=== PATIENT | female | born 1935 | race African-American/Black ===

== ENCOUNTER 2018-07-15 12:44 | Day surgery (SDC) | payer OTHER ==
[2018-07-14 09:13] VITALS: BMI 20.5
--- NOTE | 2018-07-15 11:47 | HP ---
History & Physical Update - History History: No Change - Physical Physical: No Change - Assessment Assessment: No Change - Plan Plan: No Change
--- NOTE | 2018-07-15 11:49 | OP ---
Operative Note - Note: Operative Date: 07/15/18 Pre-Operative Diagnosis: bilateral hydronephrosis Operation: cystoscopy and bilat JJ stent change Findings: bilat hydro Post-Operative Diagnosis: Same as Pre-op Surgeon: Mikey Engel Anesthesiologist/ELECTRONIC REPAIR TROUBLESHOOTER: Jonh Sterling Anesthesia: General Specimens Removed: R and L JJ stents Estimated Blood Loss (mls): 0 Drains & Tubes with Location: 7 fr 22 cm R and L JJ stents Operative Report Dictated: Yes
[2018-07-15] MEDS ORDERED: DEXAMETHASONE SOD PHOSPHATE 4 MG/1 ML VIAL ONE (13:26)
[2018-07-15] MEDS ORDERED: LIDOCAINE HCL/PF 2% SDV 5ML VIAL ONE (13:26)
[2018-07-15] MEDS ORDERED: PROPOFOL 20 ML ONE (13:27)
[2018-07-15] MEDS ORDERED: ceFAZolin SODIUM 1 GM VIAL IVPB ONE (14:10)
[2018-07-15] MEDS ORDERED: KETOROLAC TROMETHAMINE 30 MG/1 ML VIAL ONE ×2 (14:29→14:31)
[2018-07-15] MEDS ORDERED: MIDAZOLAM HCL 2 MG/2 ML SINGLE DOSE VIAL ONE (15:14)
--- NOTE | 2018-07-15 15:24 | OP ---
DATE OF OPERATION: 07/15/2018 PREOPERATIVE DIAGNOSIS: Bilateral hydronephrosis. POSTOPERATIVE DIAGNOSIS: Bilateral hydronephrosis. PROCEDURE PERFORMED: Cystoscopy, bilateral JJ stent change. SURGEON: Mikey Kowalski M.D. KINDERGARTEN TUTOR: None. ANESTHESIA: General via laryngeal mask. ANESTHESIOLOGIST: Jonh Sterling CRNA SPECIMENS: Bilateral JJ stents. CULTURES: None. DRAINS: Right and left 7-Israeli 22-cm JJ stents. ESTIMATED BLOOD LOSS: None. COMPLICATIONS: None. DESCRIPTION OF PROCEDURE: The patient was brought into the operating room and placed on the operating table in the supine position. After the administration of general anesthesia via laryngeal mask, intravenous antibiotics were administered and sequential compression devices were placed. The patient was placed in the dorsal lithotomy position. The perineum and vagina were prepped and draped in the usual sterile manner. A 22-Israeli cystoscope was inserted into the bladder, with the obturator in place. The obturator was removed. Urine was evacuated. The 30-degree telescope was inserted and cystoscopy was performed. This demonstrated no tumor, stones or inflammation. Both ureteral orifices were in their locations, with JJ stents in place. The right JJ stent was grasped at its tip, brought to the urethral meatus, cannulated with a 0.038 guidewire, which was advanced to the level of the right renal pelvis under fluoroscopic guidance. The JJ stent was removed. A dual-lumen catheter was inserted. Retrograde pyelogram was done and demonstrated moderate right hydronephrosis. The guidewire was left in place. The dual-lumen catheter was removed and a 7-Israeli 22-cm right JJ stent was inserted over the guidewire under direct visual and fluoroscopic guidance, leaving 1 coil in the renal pelvis and 1 coil in the bladder. Now attention was directed to the left side. The left JJ stent was changed in an identical manner, the same size, 7-Israeli 22 cm. The bladder was emptied and the cystoscope removed. She tolerated the procedure well and was transferred to the recovery room in stable condition. MIKEY KOWALSKI M.D. [id number]
[2018-07-15] MEDS ORDERED: ceFAZolin SODIUM 1 GM VIAL ONE (15:28)
[2018-07-15] MEDS ORDERED: PHENYLEPHRINE HCL 10 MG/1 ML SINGLE DOSE VIAL ONE (15:47)
[2018-07-15] MEDS ORDERED: ONDANSETRON 4 MG/2 ML VIAL IVPUSH PRN (16:21)
[2018-07-15] MEDS ORDERED: oxyCODONE HCL 5 MG TABLET PO PRN (16:21)
[2018-07-15] MEDS ORDERED: LACTATED RINGERS SOLUTION 1,000 ML IV SCH (16:30)
[2018-07-15 17:15] VITALS: BP 150/64; PULSE 75; TEMP 97.8
--- NOTE | 2018-07-20 13:24 | PATH ---
Surgical Pathology Report Patient Name: ADELA CHISHOLM Med. Rec. #: [id number] /Age/Gender: 1935 (Age: 83) / F Account: [id number] Location: [facility] Taken: 07/15/2018 Received: 07/16/2018 Reported: 07/20/2018 Physicians: Mikey Engel M.D. Specimen(s) Received A: RIGHT STENT B: LEFT STENT Clinical History Hydronephrosis Final Diagnosis A. STENT, RIGHT, URETERAL STENT CHANGE: URETERAL STENT. MACROSCOPIC DIAGNOSIS. B. STENT, LEFT, URETERAL STENT CHANGE: URETERAL STENT. MACROSCOPIC DIAGNOSIS. Electronically Signed Dayna Umaña M.D. Gross Description A. Received fresh labeled "right stent" is a portion of plastic tube measuring 35 cm in length and 0.2 cm in diameter, consistent with ureteral stent. No soft tissue present, for gross examination only. B. Received fresh labeled "left stent" is a portion of plastic tube measuring 35 cm in length and 0.2 cm in diameter, consistent with a ureteral stent. No soft tissue present, for gross examination only. KWRadha/07/16/2018 sandra/07/16/2018
== END 2018-07-15 16:30 | disposition home or self-care (01) ==
LOC: JASU-SURG 12:44
PROVIDERS: ATTEND Urology
PROC: 0T788DZ Dilation of Bilateral Ureters with Intraluminal Device, Via Natural or Artificial Opening Endoscopic (ICD-10-PCS; principal; 2018-07-15 13:30)
PROC: 0TP98DZ Removal of Intraluminal Device from Ureter, Via Natural or Artificial Opening Endoscopic (ICD-10-PCS; 2018-07-15 13:30)
DX: N13.30 Unspecified hydronephrosis (principal)
CPT/HCPCS: 76000-TC-FY; 88300-TC; 94760

== ENCOUNTER 2019-10-07 04:34 | Day surgery (SDC) | payer OTHER ==
[2019-10-05 17:54] VITALS: BMI 20.5
--- NOTE | 2019-10-07 09:25 | HP ---
History & Physical Update - History History: No Change - Physical Physical: No Change - Assessment Assessment: No Change - Plan Plan: No Change
--- NOTE | 2019-10-07 09:26 | OP ---
Operative Note - Note: Operative Date: 10/07/19 Pre-Operative Diagnosis: bilateral hydronephrosis Operation: cystoscopy and bilateral JJ stent change Surgeon: Mikey Engel Anesthesiologist/LENS GRINDER: Slava Ramsay Anesthesia: General Specimens Removed: R and L JJ stents Estimated Blood Loss (mls): 0 Drains & Tubes with Location: 7 fr 22 cm L and R JJ stents Operative Report Dictated: Yes
[2019-10-07] MEDS ORDERED: ceFAZolin SODIUM 1 GM VIAL IVPB ONE (09:59)
[2019-10-07] MEDS ORDERED: ONDANSETRON 4 MG/2 ML VIAL IVPUSH PRN (10:32)
[2019-10-07] MEDS ORDERED: PROMETHAZINE HCL 25 MG/1 ML VIAL IVPUSH PRN (10:32)
[2019-10-07] MEDS ORDERED: LACTATED RINGERS SOLUTION 1,000 ML IV SCH (10:45)
--- NOTE | 2019-10-07 12:05 | OP ---
DATE OF OPERATION: 10/07/2019 PREOPERATIVE DIAGNOSIS: Bilateral hydronephrosis. POSTOPERATIVE DIAGNOSIS: Bilateral hydronephrosis. PROCEDURE: Cystoscopy and bilateral double-J stent change. SURGEON: Mikey Kowalski MD SPICE BLENDER: None. ANESTHESIA: General via laryngeal mask. ANESTHESIOLOGIST: Slava Ramsay MD SPECIMEN: Bilateral double-J stents. CULTURES: None. DRAINS: Right and left 7-Chinese 22-cm double-J stents. ESTIMATED BLOOD LOSS: None. COMPLICATIONS: None. DESCRIPTION OF PROCEDURE: Patient was brought in the operating room, placed on the operating table in supine position. After administration of general anesthesia via laryngeal mask, intravenous antibiotics were administered, sequential compression devices were placed. Patient was placed in the dorsal lithotomy position. Genitals, perineum, and vagina were prepped and draped in the usual sterile manner. A 22-Chinese cystoscope was inserted into the bladder with the obturator in place. The obturator was removed, urine was evacuated. The 30-degree telescope was inserted. Cystoscopy was performed. This demonstrated no tumors, stones, inflammation. Both ureteral orifices were in the usual location with double-J stents in place. The right double-J stent was grasped at its tip, brought to the urethral meatus, cannulated with a 0.038 guidewire which was advanced to the level of the right renal pelvis under fluoroscopic guidance. Double-J stent was removed, sent to pathology as specimen. Dual-lumen catheter was inserted and retrograde pyelogram was done, demonstrated [id number] right hydronephrosis. Dual-lumen catheter was removed, and a 7-Chinese 22-cm left double-J stent was inserted over the guidewire under direct visual and fluoroscopic guidance, leaving 1 coil in the renal pelvis and 1 coil in the bladder. In a similar manner, the left double-J stent was changed. She tolerated the procedure well. Bladder was emptied, cystoscope removed. She was transferred to recovery in stable condition. MIKEY KOWALSKI M.D. [id number]
[2019-10-07 14:38] VITALS: TEMP 97
[2019-10-07 14:42] VITALS: BP 173/74; PULSE 52
--- NOTE | 2019-10-10 11:12 | PATH ---
Surgical Pathology Report Patient Name: ADELA CHISHOLM Med. Rec. #: [id number] /Age/Gender: 1935 (Age: 84) / F Account: [id number] Location: [facility] Taken: 10/07/2019 Received: 10/07/2019 Reported: 10/10/2019 Physicians: Mikey Engel M.D. Specimen(s) Received REMOVED RIGHT AND LEFT STENT Clinical History Hydronephrosis Final Diagnosis REMOVED RIGHT AND LEFT STENT, BILATERAL STENT EXCHANGE:CONSISTENT WITH URETERAL STENTS (2). MACROSCOPIC DIAGNOSIS. Electronically Signed Dayna Umaña M.D. Gross Description Received fresh labeled "removed right and left stent," are 2 blue-green, coiled portions of tubing averaging 33 cm in length, consistent with ureteral stents. No soft tissue is present. No sections are submitted, gross only. /10/07/2019 saudi/10/07/2019
== END 2019-10-07 13:35 | disposition home or self-care (01) ==
LOC: JASU-SURG 04:34
PROVIDERS: ATTEND Urology
PROC: 0T9880Z Drainage of Bilateral Ureters with Drainage Device, Via Natural or Artificial Opening Endoscopic (ICD-10-PCS; principal; 2019-10-07 09:00)
DX: N13.39 Other hydronephrosis (principal)
CPT/HCPCS: 76000-TC-FY; 88300-TC; 94760

== ENCOUNTER 2020-11-20 04:14 | Day surgery (SDC) | payer OTHER ==
[2020-11-19 14:53] VITALS: BMI 20.5
[2020-11-20] MEDS ORDERED: PROPOFOL 20 ML ONE ×2 (07:32)
[2020-11-20] MEDS ORDERED: SUCCINYLCHOLINE CHLORIDE 200 MG/10 ML SYRINGE ONE (07:32)
[2020-11-20] MEDS ORDERED: LIDOCAINE HCL/PF 2% SDV 5ML VIAL ONE (07:34)
[2020-11-20] MEDS ORDERED: DEXAMETHASONE SOD PHOSPHATE 4 MG/1 ML VIAL ONE (07:34)
[2020-11-20] MEDS ORDERED: ceFAZolin 2 GRAM PREMIX BAG IVPB ONE (07:45)
[2020-11-20] MEDS ORDERED: ceFAZolin SODIUM 1 GM VIAL ONE (07:49)
[2020-11-20] MEDS ORDERED: IOHEXOL 300 MG/ML INFUS..BTL IV ONE (08:00)
[2020-11-20] MEDS ORDERED: ONDANSETRON 4 MG/2 ML VIAL IVPUSH PRN (08:26)
[2020-11-20] MEDS ORDERED: oxyCODONE HCL 5 MG TABLET PO PRN (08:26)
[2020-11-20] MEDS ORDERED: LACTATED RINGERS SOLUTION 1,000 ML IV SCH (08:30)
[2020-11-20 11:18] VITALS: TEMP 98
[2020-11-20 11:21] VITALS: BP 136/74; PULSE 70
== END 2020-11-20 10:30 | disposition home or self-care (01) ==
LOC: JASU-SURG 04:14
PROVIDERS: ATTEND Urology
PROC: 0T9880Z Drainage of Bilateral Ureters with Drainage Device, Via Natural or Artificial Opening Endoscopic (ICD-10-PCS; principal; 2020-11-20 07:30)
PROC: BT14YZZ Fluoroscopy of Kidneys, Ureters and Bladder using Other Contrast (ICD-10-PCS; 2020-11-20 07:30)
DX: N13.30 Unspecified hydronephrosis (principal)
CPT/HCPCS: 88300-TC; 94760